=== PATIENT | female | born 1975 | race Caucasian/White ===

== ENCOUNTER 2021-03-20 16:02 | Inpatient (IN) | payer OTHER ==
[~2021-03-20] VITALS: Ht 152.4 cm; Wt 83.5 kg
[2021-03-21] MEDS ORDERED: IROPLEX PO (08:36)
[2021-03-22] MEDS ORDERED: IRO-PLEX LIQUI120 ML (14:06)
[2021-03-24] MEDS ORDERED: COLACE100 MG PO (12:47)
[2021-03-24] MEDS ORDERED: ZOFRAN8 MG PO (12:47)
[2021-03-24] MEDS ORDERED: PERCOCET 5-3251 EACH PO (12:47)
[2021-03-24] MEDS ORDERED: SIMETHICONE80 MG PO (12:47)
[2021-03-24] MEDS ORDERED: IBU800 MG PO (12:47)
== END 2021-03-24 13:53 | disposition home or self-care (01) | DRG 743 ==
LOC: OB/GYN 03-22 06:00 → O/R 03-22 06:00 → SURH 03-22 07:55 → OB/GYN 03-22 14:14
PROVIDERS: ADMIT Obstetrics & Gynecology; ATTEND Obstetrics & Gynecology
PROC: 0UT70ZZ Resection of Bilateral Fallopian Tubes, Open Approach (ICD-10-PCS; 2021-03-22)
PROC: 0TJB8ZZ Inspection of Bladder, Via Natural or Artificial Opening Endoscopic (ICD-10-PCS; 2021-03-22)
PROC: 0UT90ZZ Resection of Uterus, Open Approach (ICD-10-PCS; principal; 2021-03-22 11:00)
DX: D25.1 Intramural leiomyoma of uterus (principal); D25.0 Submucous leiomyoma of uterus; N72 Inflammatory disease of cervix uteri; Z20.822 Contact with and (suspected) exposure to COVID-19